=== PATIENT | female | born 1990 | race Caucasian/White ===

== ENCOUNTER → 2017-10-13 | Outpatient (CLI) | payer OTHER ==
[~2017-10-13] MED LIST: PREN-127 PO
[2017-10-13 15:15] LABS: PLATELET COUNT, AUTOMATED 237 K/uL (150-450)
== END ==
LOC: LAB 14:51
PROVIDERS: ATTEND Obstetrics & Gynecology
DX: Z34.91 Encounter for supervision of normal pregnancy, unspecified, first trimester (principal); R82.79 Other abnormal findings on microbiological examination of urine
CPT/HCPCS: 36415; 81001; 85025; 86592; 86762; 86850; 86900; 86901; 87088; 87340

== ENCOUNTER → 2018-01-22 | Outpatient (CLI) | payer OTHER ==
[~2018-01-22] MED LIST changes: +DOXY25TA19; +VITA1CAP46 PO
--- NOTE | 2018-01-22 14:04 | RADIOLOGY IMAGING REPORT ---
FACILITY: [facility] PATIENT NAME: Marleny Catalan : 1990 MR: [id number] V: [id number] EXAM DATE: ORDERING PHYSICIAN: LATIA MCMAHON TECHNOLOGIST: Location: [facility] [place] Patient: Marleny Catalan : 1990 Visit/Account:[id number] Date of Sevice: 01/22/2018 [facility] OB ANATOMICAL SURVEY HISTORY: Anatomical survey COMPARISON: None. TECHNIQUE: Transabdominal imaging was performed for assessment of the fetus and maternal pelvic s tructures. Transvaginal imaging was not performed. FINDINGS: Intrauterine gestations: One. presentation: Breech with the head towards the maternal right in the spine towards the maternal left. heart rate: 142 bpm. Amniotic fluid volume: ; HILTON 13.2 cm; MVP 3.62 cm. Placenta: Anterior. Uterus: Gravid, otherwise grossly unremarkable where visualized. Maternal adnexa/ovaries: Grossly unremarkable, ovaries not visualized. Cervix: Grossly long and closed. Gestational Parameters: BPD: 4.64 cm, 14 percentile HC: 18.74 cm, 43rd percentile AC: 15.91 cm, 44th percentile FL: 3.47 cm, 38th percentile Average ultrasound age (AUA): 20 weeks/ six days Estimated age based on LMP: 21 weeks/ zero days, 42nd percentile Estimated weight (EFW): 389 grams +/- 57 grams Anatomic Survey: Intracranial structures, 4-chamber heart, stomach, kidneys, urinary bladder, spine, 3-vessel cord and cord insertion are unremarkable. Two upper and two lower extremities visualized. IMPRESSION: Single viable fetus in breech presentation with an estimated gestational age of 20 weeks and six days by measurements. The estimated weight is 389 g HILTON measures 13.2 cm, MVP 3.62 cm Report Dictated By: Dominique Lo MD at 01/22/2018 1:53 PM Report E-Signed By: Dominique Lo MD at 01/22/2018 2:00 PM WSN:GUI
== END ==
LOC: RAD 11:01
PROVIDERS: ATTEND Obstetrics & Gynecology
DX: Z34.82 Encounter for supervision of other normal pregnancy, second trimester (principal); O32.1XX0 Maternal care for breech presentation, not applicable or unspecified; Z3A.20 20 weeks gestation of pregnancy

== ENCOUNTER → 2018-03-02 | Outpatient (CLI) | payer OTHER ==
[~2018-03-02] MED LIST changes: +DIPH0.5D12 IM; +FLU60VIA41 IM
[2018-03-02 10:26] LABS: PLATELET COUNT, AUTOMATED 241 K/uL (150-450)
== END ==
LOC: LAB 09:08
PROVIDERS: ATTEND Student in an Organized Health Care Education/Training Program
DX: Z34.92 Encounter for supervision of normal pregnancy, unspecified, second trimester (principal)
CPT/HCPCS: 36415; 82950; 85025

== ENCOUNTER → 2018-05-01 | Outpatient (CLI) | payer OTHER | LOC: LAB 10:03 | PROVIDERS: ATTEND Advanced Practice Midwife | DX: Z34.93 Encounter for supervision of normal pregnancy, unspecified, third trimester (principal) | CPT/HCPCS: 87081 ==

== ENCOUNTER 2018-05-10 15:36 | Inpatient (IN) | payer OTHER ==
[~2018-05-10] VITALS: Ht 170.2 cm; Wt 74.8 kg
[2018-05-10] MEDS ORDERED: NIFEdipine 10 MG CAP PO ONE (16:00)
[2018-05-10] MEDS: LR(*) 1000 ML BAG 1,000 ML IV SCH (16:23)
[2018-05-10] MEDS ORDERED: LABETALOL HCL 20 MG/4 ML SYR IVP ONE (16:25)
[2018-05-10] MEDS ORDERED: LABETALOL HCL 20 MG/4 ML SYR ONE (16:30)
[2018-05-10 16:33] LABS: PLATELET COUNT, AUTOMATED 192 K/uL (150-450)
[2018-05-10 16:53] VITALS: BP 167/102; Ht 170.2 cm; Wt 74.8 kg
[2018-05-10] MEDS ORDERED: DINOPROSTONE 10 MG INSERT PV ONE (16:58)
[2018-05-10] MEDS: MAGNESIUM SULF 20 GM/500 ML IV 500 ML IV SCH (17:02)
[2018-05-10] MEDS ORDERED: MAGNESIUM SUL* 4 GM/100 ML BAG 100 ML IVPB ONE (17:30)
[2018-05-10] MEDS ORDERED: LABETALOL HCL 20 MG/4 ML SYR IVP PRN (17:45)
[2018-05-10] MEDS ORDERED: CALCIUM GLUC 10% 100 MG/ML VL IVP PRN (17:45)
--- NOTE | 2018-05-10 17:51 | History & Physical ---
History of Present Illness EDC per LMP: Jun 04, 2018 Estimated Gestational Age: 36.4 Chief Complaint Elevated blood pressure History of Present Illness 27-year-old at 36w4d presented to L&D for elevated BP. She was feeling poorly this morning with some nausea and generalized epigastric pain. She then developed dizziness. She went to the [employer] station, where her friend was working. Her BPs were in the severe range there. She started having a headache around 3pm. She denies vomiting. She reports good movement. No contractions or bleeding. She has had an uncomplicated up until now. PNC by IMG. History Patient's Blood Type: O Positive Rubella Status: Immune Group B Strep Screen: Negative Obstetrical History: G1: 39wk , no anesthesia G2: SAB in 2017 G3: Current Past Medical History: PMH: Anxiety PSH: Blanding tooth Allergies: Coded Allergies: Iodine and Iodide Containing Produc (Verified Allergy, Severe, HIVES, 10/13/17) shellfish derived (Verified Allergy, Severe, HIVES, TONGUE SWELLING, DIFFI CULTY BREATHING, 10/13/17) cat dander (Verified Allergy, Intermediate, ITCHY EYES, SINUS , 10/13/17) dog dander (Verified Allergy, Intermediate, HIVES, 10/13/17) horse dander (Verified Allergy, Intermediate, SNEEZING AND WATERY EYES, 10/13/17) Uncoded Allergies: SEAFOOD (Allergy, Severe, HIVES, TONGUE SWELLING, DIFFICULTY BREATHING, 10/13/17) Social History: No T/E/D. Family History: FHx: back pain FATHER FHx: brain tumor MOTHER FHx: hypertension MOTHER Med Rec Home Meds Reported Medications Vits W-Ca,Fe,Fa(<1MG) ( VITAMINS) 1 Each Tablet, 1 EACH PO DAILY, TAB 10/13/17 Review of Systems Constitutional: No Fever Neurological: No Syncope Eyes: No Vision Change Cardiovascular: No Chest Pain, No Palpitations Respiratory: No Shortness of Breath, No Cough, No Wheezing Gastrointestinal: Nausea; No Vomiting, No Diarrhea Genitourinary: No Dysuria Musculoskeletal: No Pain Psychiatric: Anxiety; No Depression Exam General Exam Vital Signs Vital Signs Date Time Temp Pulse Resp B/P (MAP) Pulse Ox O2 Delivery O2 Flow Rate FiO2 05/10/18 16:53 97.4 57 18 167/102 (123) 99 Room Air General Apperance: Alert/Awake/No Acute Distress (Anxious) Neuro: No Gross deficits Eyes: Normal Extraocular Movement & Vison Cardiovascular: Regular Rate and Rhythm Respiratory: No Respiratory Distress, Clear to Auscultation Abdomen: Gravid - Non-Tender : Normal Musculoskeletal: No Weakness/Pain Extremities: No Cyanosis,Clubbing or Edema, Reflexes (3+ bilateral DTR of lower extremities); No Clonus Integumentary: Skin Intact without Lesions or Rash Psychological: Alert & Oriented X3, Appropriate Mood & Affect Cervical Dialation: 1 Cervical Effacement (%): 60 Cervical Consistency: Moderate Cervical Position: Posterior Station: -1 Presentation: Vertex Uterine Contractions(Q min): 10 Uterine Contraction Strength: Mild UC Resting Tone: Soft Fetus Feeling Movement?: Yes FHT Category: I Medical Decision Making Data Points Result Diagram: 05/10/18 1619 05/10/18 1600 Urine Pr:Cr = 5 Pre-Admit Course Medical Record Review: Yes VTE Prophylasis: Adult Deep Vein Thrombosis/Pulmonary: No Pharmacological Contraindicati: Pt at Low Risk for VTE Mechanical Contraindications: Pt at Low Risk for VTE Assessment and Plan Problems: (1) Severe pre-eclampsia in third trimester Assessment & Plan: 27-year-old at 36w4d presented to L&D for elevated BP. She has been found to have severe preeclampsia by blood pressure, symptoms and elevated liver enzymes. I am concerned she is developing HELLP syndrome, but at this time her platelets are still normal. Her liver enzymes are elevated. Her Pr:Cr ratio is 5. She responded well to one dose of Labetalol 20mg IV for blood pressure. She has been started on Magnesium 4gram bolus and now at 2g/hr. Betamethasone has been ordered. We had a long discussion about the indication for induction at this time. Her Amin score is unfavorable at 6. Cervadil was placed into posterior fornix. Will repeat labs in 4 hours to see if they are trending worse. Will move towards vaginal delivery unless mom or baby appear unstable. Will monitor I&O's closely. GBS negative. (2) 36 weeks gestation of LATIA MCMAHON MD May 10, 2018 17:36
[2018-05-10] MEDS ORDERED: BETAMETHASONE/ACETATE 6 MG/1ML IM ONLY SCH (18:00)
[2018-05-10 20:12] LABS: PLATELET COUNT, AUTOMATED 201 K/uL (150-450)
[2018-05-10] MEDS ORDERED: ONDANSETRON 4 MG/2 ML VIAL ONE (21:00)
[2018-05-10] MEDS ORDERED: BUPIVACAINE 0.5% INJ 30ML VIAL EPI PRN (21:05)
[2018-05-10] MEDS ORDERED: ONDANSETRON 4 MG/2 ML VIAL IVP PRN (21:05)
[2018-05-10] MEDS ORDERED: fentaNYL CITR 100 MCG/2 ML AMP IT PRN (21:05)
[2018-05-10] MEDS ORDERED: LIDO/EPI 2% MPF 1:200,000 20ML EPI PRN (21:05)
[2018-05-10] MEDS ORDERED: LIDOCAINE/PF 2% 200MG/10ML AMP 200 MG/10 ML AMPUL EPI PRN (21:05)
[2018-05-10] MEDS ORDERED: BUPIVACAINE 0.25% MPF INJ EPI PRN (21:05)
[2018-05-10] MEDS ORDERED: EPIDURAL KEYS XX PRN (21:05)
[2018-05-10] MEDS ORDERED: FENTANYL/ROPIVACAINE 100 ML BAG EPI PRN (21:05)
[2018-05-10] MEDS ORDERED: ACETAMINOPHEN 325 MG TAB PO PRN (21:15)
[2018-05-10] MEDS ORDERED: fentaNYL CITR 100 MCG/2 ML AMP IVP PRN (21:15)
[2018-05-10] MEDS ORDERED: DEXAMETHASONE SOD 4 MG/ML VIAL IVP SCH (21:25)
--- NOTE | 2018-05-10 21:33 | Labor Progress Note ---
Labor Subjective Progress Notes Subjective Pt still has a headache in the back of her head, but it is not worse. In fact, it nearly resolved for a short time. She is feeling nauseated and has had 2 episodes of emesis. She denies blurry vision. She has a sensation of pressure in the epigastric region but not pain in the RUQ. She reports movement. She feels anxious. She is feeling some cramping. Labor Objective Vital Signs Vital Signs Date Time Temp Pulse Resp B/P (MAP) Pulse Ox O2 Delivery O2 Flow Rate FiO2 05/10/18 16:53 97.4 57 18 167/102 (123) 99 Room Air Fetus Heart Tones: 150 Heart Tone Variabilty: Moderate FHT Decelerations: None FHT Category: I General Exam General Appearance: Alert/Awake/No Acute Distress Respiratory: No Respiratory Distress, Clear to Auscultation Abdomen: Gravid - Non-Tender Musculoskeletal: No Weakness/Pain Extremities: No Cyanosis,Clubbing or Edema, Reflexes (3+ bilateral DTR); No Clonus Integumentary: Skin Intact without Lesions or Rash Psychological: Alert & Oriented X3, Appropriate Mood & Affect Other Result Diagram: 05/10/18200605/10/182006 Assessment and Plan Problems: (1) Severe pre-eclampsia in third trimester Assessment & Plan: Repeat labs at 4 hours show stable platelets and creatinine. However, her AST/ALT have increased. She is having an increase in nausea but otherwise feels the same as admission. Her BP are now stable without additional antihypertensives. She continues on magnesium drip. I spoke with Dr. Bailon of [facility]. He recommends starting dexamethasone to see if we can get more time to work towards a vaginal delivery. However, if repeat labs show worsening PLT or she develops worsening symptoms or urine output drops, he recommends for expedited delivery. Will start with dexamethasone 4mg IV, then 2mg IV Q4hrs. In the meantime, she will get epidural prior to attempt at hilliard bulb placement to assist with ripening. Dr. Bailon recommends the following taper : Dexamethasone 2mg Q4hr until LFTs improve; then oral 2mg Q6H x 2 days, 2mg Q8H x 2 days, 2mg Q12H x 2 days, then 2mg Q24H x 2 days (2) 36 weeks gestation of LATIA MCMAHON MD May 10, 2018 21:33
[2018-05-10] MEDS ORDERED: DEXAMETHASONE SOD 4 MG/ML VIAL IVP ONE (21:40)
[2018-05-10] MEDS ORDERED: ACETAMINOPHEN(*)1000 MG/100 ML 100 ML IVPB PRN (21:50)
--- NOTE | 2018-05-10 23:18 | Labor Progress Note ---
Labor Subjective Progress Notes Subjective Pt is feeling much better with epidural. She denies current headache. Her nausea is slightly improved now. Labor Objective Vital Signs Vital Signs Date Time Temp Pulse Resp B/P (MAP) Pulse Ox O2 Delivery O2 Flow Rate FiO2 05/10/18 16:53 97.4 57 18 167/102 (123) 99 Room Air Vaginal Discharge/Fluid?: Clear Fluid Cervical Dialation: 4 Cervical Effacement (%): 80 Cervical Consistency: Soft Cervical Position: Mid Station: 0 Presentation: Vertex Uterine Contractions(Q min): 4 Uterine Contraction Strength: Moderate UC Resting Tone: Soft Fetus Heart Tones: 133 Heart Tone Variabilty: Minimal (Due to magnesium), Moderate FHT Decelerations: None FHT Category: II General Exam General Appearance: Alert/Awake/No Acute Distress Cardiovascular: Normal Rhythm & Peripheral Pulses Respiratory: No Respiratory Distress Musculoskeletal: No Weakness/Pain Extremities: No Cyanosis,Clubbing or Edema Integumentary: Skin Intact without Lesions or Rash Psychological: Alert & Oriented X3, Appropriate Mood & Affect Other Result Diagram: 05/10/18200605/10/182006 Assessment and Plan Problems: (1) Severe pre-eclampsia in third trimester Assessment & Plan: Pt is now comfortable with epidural. She has now progressed to 4/80. AROM with clear fluid. Will start pitocin at midnight. Hoping for . Will continue magnesium and dexamethasone. Her BP is going up slightly since epidural. Will treat as needed. (2) 36 weeks gestation of LATIA MCMAHON MD May 10, 2018 23:18
--- NOTE | 2018-05-10 23:45 | Anesthesia OB Pre-Anes Eval ---
History of Present Illness Anesthesia Start Date: May 10, 2018 Anesthesia Start Time: 22:00 Current Complication: other (PIH) Complications: 36 weeks EDC: Jun 04, 2018 : 3 Para: 1 Vital Signs: Vital Signs Date Time Temp Pulse Resp B/P (MAP) Pulse Ox O2 Delivery O2 Flow Rate FiO2 05/10/18 16:53 97.4 57 18 167/102 (123) 99 Room Air Pain Ratin Heart Tones: WNL Result Diagram: 05/10/18200605/10/182006 Height (Inches): 67.00 Weight (Pounds): 165 Past Medical History Medical History: no pertinent history Surgical History: no surgical history, other ("only wisdom teeth") Attended Childbirth Classes?: No Hx Anesthesia Reactions: No Hx Family Anesthesia Reaction: No Current Medications: magnesium sulfate Home Meds Reported Medications Vits W-Ca,Fe,Fa(<1MG) ( VITAMINS) 1 Each Tablet, 1 EACH PO DAILY, TAB 10/13/17 Allergies: Coded Allergies: Iodine and Iodide Containing Produc (Verified Allergy, Severe, HIVES, 10/13/17) shellfish derived (Verified Allergy, Severe, HIVES, TONGUE SWELLING, DIFFICULTY BREATHING, 10/13/17) cat dander (Verified Allergy, Intermediate, ITCHY EYES, SINUS , 10/13/17) dog dander (Verified Allergy, Intermediate, HIVES, 10/13/17) horse dander (Verified Allergy, Intermediate, SNEEZING AND WATERY EYES, 10/13/17) Uncoded Allergies: SEAFOOD (Allergy, Severe, HIVES, TONGUE SWELLING, DIFFICULTY BREATHING, 10/13/17) Anesthesia OB ROS Neurological: No migraines/headaches, No seizures, No neuropathy ENT: Denies Tooth caps, Denies Loose teeth, Denies Chipped teeth, Denies Dentures, Denies Bridges, Denies Retainers, Denies Veneers, Denies Implants, Denies Tongue ring Pulmonary: No asthma, No smoker (pks/day/yrs) Airway Class: lll GI ROS: clear liquids Last Solids Date: May 10, 2018 Last Solids Time: 15:00 ROS: No Herpes, No STD(s), No Liver Disease, No Renal Disease Endocrine ROS: No diabetes, No gestational diabetes, No thyroid disorder Musculoskeletal ROS: No low back pain, No low back injury, No scoliosis ASA Classification: 3, E Assessment and Plan Anesthesia Plan: LEB Assessment Pt. present with PIH, needing to be induced for delivery bruce. Pt. is agreeable to have epidural placed before Dr. Kraft places a hilliard catheter for induction. Past Medical, Surgical, Family and Obstetric Histories reviewed. Please see ACOG chart. Epidural anesthesia risks, complications and benefits explained to patient's satisfaction for labor and vaginal delivery and/or section. General anesthesia risks and benefits explained to patient's satisfaction. Questions invited, and answered. GISELA DRAKE CRNA May 10, 2018 23:45
--- NOTE | 2018-05-10 23:51 | Procedure Note ---
Anesthetic Placement Note Anesthesia Plan: CSE Permit for Anesthesia Signed: Yes Anesthesia Technique: Patient Sitting Anesthesia Prep: Chlorhexidine Interspace: L 3-4 Local Anesthetic: 1% Lidocaine, 25 Gauge Needle Amount Local - cc's: 2 Anesthesia Needle: 17g Touhy/Schliff Anesthesia Attempts: 1 Loss of Resistance: Air Depth of ES (cm): 3 Epidural Needle Placement: No CSF, No Blood, No Parasthesia Cerebral Spinal Fluid: No Catheter Insertion (cm): 5 Catheter Type: Cordero - Spring Wound Epidural Dressing: Tegaderm, Tape, Adhesive [place] Anesthesia Tray: Lot Number ([id number]), Expiration Date (2019-03-27), Reference Number ([id number]) Anesthesia Medications: Intrathecal Dose: Other (None) Epidural Test Dose: 1.5 Lido/Epi (1:200,000), Dose - mL (2), Time (6), Negative Epidural Loading Dose: 0.2% Ropivicaine, With Fentanyl 2mcg/ml, Dose - ml (10), Time (2230) Epidural Infusion: 0.2% Ropivicaine, With Fentanyl 2mcg/ml, Start Time: (2250) Epidural Pump Setting: Bolus Dose - mL (5), Lockout - Minutes (20), Maintenance Rate - mL/hr (6), Maximum per Hour - mL (21) Complications: None Comment: Pt. became nauseated and "light headed" while sitting up for epidural placement. Assisted to lay on her side til symptoms passed. BP was very stable. After repositioning she was able to sit for smooth placement of epidural. No problems encounter with placement. GISELA DRAKE CRNA May 10, 2018 23:51
--- NOTE | 2018-05-10 23:59 | Anesthesia Progress Note ---
Progress/Maintenance Anesthesia Note Date: May 10, 2018 Pain Intensity: 0 Pump: On Pump Rate (ML/HR): 6 Sensory Level: T-12 Motor Level: Bending Knees-Bilateral, Other (left leg heavier) Dilatation: 4 Position: Right, Tilt Assessment and Plan Assessment Exam by Dr. Kraft. Pt. found to be 4-5 cms, not needing a hilliard bulb for dilation. Pt. had excellent tolerance of exam and AROM. GISELA DRAKE CRNA May 10, 2018 23:59
[2018-05-11] VITALS (18 sets, daily range): BP systolic 118–173; BP diastolic 68–102
[2018-05-11] MEDS: MAGNESIUM SULF 20 GM/500 ML IV 500 ML IV SCH (00:52)
[2018-05-11] MEDS: LR(*) 1000 ML BAG 1,000 ML IV SCH (00:53)
--- NOTE | 2018-05-11 00:56 | Anesthesia Progress Note ---
Progress/Maintenance Anesthesia Note Date: May 11, 2018 Anesthesia Note Time: 00:50 Pain Intensity: 6 Pump: On Pump Rate (ML/HR): 6 Sensory Level: T-12 Motor Level: Bending Knees-Bilateral Dilatation: 4 Position: Right, Tilt Drug Bolus: Other (Fentenyl 50 mcgs) Assessment and Plan Assessment Pt. states she is feeling stronger contractions and requests more epidural medication. Bolus with Fentenyl and per pump. GISELA DRAKE CRNA May 11, 2018 00:56
[2018-05-11] MEDS ORDERED: DEXAMETHASONE SOD 4 MG/ML VIAL IVP SCH ×2 (01:00→05:00)
[2018-05-11] MEDS ORDERED: OXYTOCIN 30 UNIT/D5LR 500 ML 500 ML IV PRN ×2 (01:02)
--- NOTE | 2018-05-11 01:06 | Labor Progress Note ---
Labor Subjective Progress Notes Subjective Pt is feeling pain with contractions. She is breathing through with her mother at her bedside. No specific preeclampsia symptoms at this time. Labor Objective Vital Signs Vital Signs Date Time Temp Pulse Resp B/P (MAP) Pulse Ox O2 Delivery O2 Flow Rate FiO2 05/10/18 16:53 97.4 57 18 167/102 (123) 99 Room Air Vaginal Discharge/Fluid?: Green Tinged Fluid Cervical Dialation: 5 Cervical Effacement (%): 80 Cervical Consistency: Soft Cervical Position: Mid Station: 0 Presentation: Vertex Uterine Contractions(Q min): 3 Uterine Contraction Strength: Moderate UC Resting Tone: Soft Fetus Heart Tones: 130 Heart Tone Variabilty: Minimal, Moderate FHT Accelerations: Absent FHT Decelerations: None FHT Category: II General Exam General Appearance: Alert/Awake/No Acute Distress Respiratory: No Respiratory Distress Extremities: No Cyanosis,Clubbing or Edema; No Clonus Integumentary: Skin Intact without Lesions or Rash Psychological: Alert & Oriented X3, Appropriate Mood & Affect Other Result Diagram: 05/11/18 0016 05/11/18 0016 Assessment and Plan Problems: (1) Severe pre-eclampsia in third trimester Assessment & Plan: Pt is 5cm and 80% effaced. Pitocin was just started one hour ago. Will initiate a high dose protocol to try to expedite delivery. Recently fluid has a appeared lightly meconium stained. Her BP is stable. Continue Magnesium drip. Her labs have returned and are certainly worsening with regards to PLT and LFT. Creatinine is stable at 0.7. We discussed if she does not have significant cervical change in the next couple of hours, we will need to proceed with primary CD. Although FHT are category II, I suspect this is mainly due to magnesium. There are no decelerations to indicate distress at this time. Will monitor closely. (2) 36 weeks gestation of LATIA MCMAHON MD May 11, 2018 01:06
--- NOTE | 2018-05-11 01:30 | Anesthesia Progress Note ---
Progress/Maintenance Anesthesia Note Date: May 11, 2018 Anesthesia Note Time: 01:25 Pain Intensity: 7 Pump: On Pump Rate (ML/HR): 10 Dilatation: 4 Position: Left, Tilt Drug Bolus: 0.5% Marcaine (5 ml), Other (Fentenyl 50 mcgs) Assessment and Plan Assessment Pt. continues to feel strong contractions. Bolus of 0.5% Marcaine plain and Fentenyl 50 mcgs repeated. GISELA DRAKE CRNA May 11, 2018 01:30
--- NOTE | 2018-05-11 02:37 | OB Delivery Note ---
Delivery Note Vaginal Delivery Type: Spont. Vaginal Delivery Delivery Date: May 11, 2018 Delivery Time: 02:23 Estimated Gestational Age(wks): 36.4 Length of Labor Stage II (hrs): 0.3 Labor Stage III (minutes): 3 Delivery Anesthesia: Epidural Sex: Female [place] Apgars: 1 Minute (8), 5 Minute (9) Estimated Blood Loss: 200 Personalized Living Assistant in Attendence: Yes (Dr. Baca) LATIA MCMAHON MD May 11, 2018 02:37
[2018-05-11] MEDS ORDERED: MAGNESIUM HYDROXIDE* 30ML UDCP PO PRN (02:45)
[2018-05-11] MEDS ORDERED: BENZOCAINE 20% 60 ML BTL TP PRN (02:45)
[2018-05-11] MEDS ORDERED: INFLUENZA VIRUS VAC 0.5ML SYR IM ONLY ONE (02:45)
[2018-05-11] MEDS ORDERED: ACETAMINOPHEN 325 MG TAB PO PRN (02:45)
[2018-05-11] MEDS ORDERED: GLYCERIN/WITCH HAZEL LEAF 1 PK TOP PRN (02:45)
[2018-05-11] MEDS ORDERED: IBUPROFEN 800 MG TAB PO SCH (02:45)
[2018-05-11] MEDS ORDERED: DIPHTH/TETANUS/ACEL. PERTUSSIS IM ONE (02:45)
[2018-05-11] MEDS ORDERED: LANOLIN OINT 7 GM TUBE TP PRN (02:45)
[2018-05-11] MEDS ORDERED: MEASLES,MUMP,RUBELLA VAC 0.5ML SC ONE (02:45)
[2018-05-11] MEDS ORDERED: HYDROCORTISONE 2.5% CR 30GM TB PR PRN (02:45)
--- NOTE | 2018-05-11 02:48 | Anesthesia Progress Note ---
Progress/Maintenance Anesthesia Note Date: May 11, 2018 Anesthesia Note Time: 02:40 Pain Intensity: 0 Pump: Off Sensory Level: T-12 Motor Level: Other (Both legs very heavy) Dilatation: 10 Position: Semi-Fowlers Assessment and Plan Assessment Pt. found to be complete and no further medication was given. Her legs were very heavy. Assisted with holding legs. Pt. was able to push well. Excellent tolerance of delivery. Epidural catheter removed entact. Anesthesia Stop Day: May 11, 2018 Anesthesia Stop Time: 02:40 Epidural Catheter Removal: Removed Catheter Intact, Yes, Removed by: (Starr Zepeda CRNA) Removal Date: May 11, 2018 Removal Time: 02:40 GISELA ZEPEDA CRNA May 11, 2018 02:48
--- NOTE | 2018-05-11 04:31 | DELIVERY NOTE ---
EVENT DATE: May 11, 2018 SURGEON: Abril Kraft MD ANESTHESIA: Epidural by Radha Zepeda CRNA. PREOPERATIVE DIAGNOSIS Intrauterine at 36 weeks and 4 days, presenting with severe preeclampsia and developing HELLP syndrome. POSTOPERATIVE DIAGNOSIS 1. Intrauterine at 36 weeks and 4 days, presenting with severe preeclampsia and developing HELLP syndrome. 2. Delivery of a viable female infant at 0223 hours weighing 5# 8oz with Apgars of 8 at one minute and 9 at five minutes. PROCEDURE PERFORMED Spontaneous vaginal delivery. ESTIMATED BLOOD LOSS 200 mL. INDICATIONS FOR PROCEDURE This patient is a 27-year-old 3, para 1-0-1-1, who presents at 36 weeks and 3 days with complaints of headache and generally not feeling well. She is found to have severe preeclampsia by severe blood pressures. She was started on magnesium and administered one dose of labetalol to normalize her pressures. She therefore was also given betamethasone for lung maturity. Cervidil was administered at 1708 hours on May 10, 2018. An 2255 hours, an amniotomy was performed, as the patient was 4, 80, and 0 station. The Cervidil was removed. She was subsequently started on Pitocin high-dose protocol. During this time, her laboratory values were monitored and her liver enzymes continued to elevate gradually, and her platelets were dropping. She, fortunately, progressed rapidly to complete at 0159 hours and was prepared for pushing. DESCRIPTION OF PROCEDURE The patient was properly identified and placed in the dorsal lithotomy position. She was noted to be complete and +2 station. She was asked to push, and over a 24-minute period was able to bring the 's vertex to the perineum. She then delivered the in the LUZ position over an intact perineum. A nuchal cord was checked but not noted. The anterior shoulder delivered easily, followed by the posterior shoulder. The remainder of the was easily delivered. The infant had spontaneous cry and spontaneous movement of all four extremities. The oropharynx and nasopharynx were bulb-suctioned, and the was passed to the mother's abdomen, where nursing personnel was in attendance. Dr. Baca was also present for the delivery. After one minute, the cord was clamped x2 and cut by the father of the baby. Cord blood was then obtained and passed off the table. The placenta subsequently delivered spontaneously intact at 0226 hours and was passed off the table. Examination of the cervix, vaginal vault, and perineum revealed no lacerations except a slight abrasion on the left periurethral area. This did not require suturing. The patient tolerated this procedure well and recovered in Labor and Delivery with her . All sponge and needle counts were correct at the end of the procedure. JADEN
[2018-05-11] MEDS ORDERED: MAGNESIUM SULF 20 GM/500 ML IV 500 ML IV SCH ×3 (08:00→22:00)
[2018-05-11] MEDS: DOCUSATE CALCIUM 240 MG CAP PO SCH ×2 (09:57→21:12)
[2018-05-11] MEDS ORDERED: MISOPROSTOL 200 MCG TAB PO ONE (10:55)
[2018-05-11] MEDS ORDERED: MISOPROSTOL 200 MCG TAB ONE (10:58)
--- NOTE | 2018-05-11 11:18 | OB/GYN Progress Note ---
OB Subjective Progress Notes Subjective Doing good this morning. Tolerating PO intake. No longer having headaches. Some RUQ pain. Still having visual changes. Bleeding appropriate. Still has hilliard catheter. No ambulation (SCD's on LE) GI: NEG Nausea, NEG Vomiting, NEG Flatus, NEG Bowel Movement : Vaginal Bleeding, Moderate Pain: Mild Neurological: No Headache, No Other OB Objective Physical Exam Vital Signs Date Time Temp Pulse Resp B/P (MAP) Pulse Ox O2 Delivery O2 Flow Rate FiO2 05/11/18 07:00 98 Room Air 05/11/18 06:21 76 18 118/68 (85) 05/11/18 03:38 98.3 Intake and Output 05/11/18 07:00 Intake Total 240 ml Output Total 1825 ml Balance -1585 ml Intake Oral 240 ml Output Urine Total 1825 ml # Voids 6 General Appearance: Alert/Awake/No Acute Distress Neurological: No Gross deficits Eyes: Normal Extraocular Movement & Vison, PERRLA Cardiovascular: Normal Rhythm & Peripheral Pulses Respiratory: No Respiratory Distress Abdomen: Soft, Non-Tender, Non-Distended, Fundus Firm Musculoskeletal: No Weakness/Pain, Other (DTR 2/4) Extremities: No Cyanosis,Clubbing or Edema; No Clonus Integumentary: Skin Intact without Lesions or Rash Psychological: Alert & Oriented X3, Appropriate Mood & Affect Result Diagram: 05/11/18 1009 05/11/18 1009 Assessment and Plan FINANCE EFFECTIVENESS MANAGER Plan: Routine Post- Care Problems: (1) Severe pre-eclampsia in third trimester Assessment & Plan: Continue 24 hour magnesium recovery until 230 am 05/12/18. No need for antihypertensive at this time. Increase to regular diet. Monitor blood work q 6 hours. (2) 36 weeks gestation of TJ STOKES DO May 11, 2018 11:18
[2018-05-11] MEDS: APAP/HYDROCODONE 325/5 TAB PO PRN ×2 (11:42→23:13)
[2018-05-11] MEDS: IBUPROFEN 800 MG TAB PO SCH ×2 (12:35→21:12)
--- NOTE | 2018-05-11 13:01 | Anesthesia Post Eval Note ---
Anesthesia Post Eval Note Vital Signs Date Time Temp Pulse Resp B/P (MAP) Pulse Ox O2 Delivery O2 Flow Rate FiO2 05/11/18 10:04 74 16 156/97 (116) 99 05/11/18 09:00 97.2 Room Air Pt able to participate in Eval: Yes Cardiovascular Status: Satisfactory Respiratory Status: Satisfactory Pain Managment: Satisfactory PO Nausea/Vomiting: Satisfactory Temperature Management: Satisfactory Mental Status: Satisfactory, Alert, Oriented X3 Post-Op Hydration Status: Satisfactory, Tolerating PO Well, Voiding w/o Difficulty Anesthesia Type: LEB Anesthesia Tolerance: Pt. remains on IV Magnesium for PIH. She is able to move her legs in bed. Headache is considered from her PIH, rather than PDPHA. Tolerated procedure well without apparent anesthetic complications. LP site clear, no redness or edema. Patient comfortable. GISELA DRAKE CRNA May 11, 2018 13:00
[2018-05-11] MEDS ORDERED: MAGNESIUM SULF 20 GM/500 ML IV 500 ML ONE (13:11)
--- NOTE | 2018-05-11 16:44 | OB/GYN Progress Note ---
OB Subjective Progress Notes Subjective Doing better than this morning. Reports no longer having eye problems. bleeding improved. No headache or visual changes. GI: NEG Nausea, NEG Vomiting, NEG Flatus, NEG Bowel Movement : Vaginal Bleeding, Moderate Pain: Mild, Comfortable, Tolerating PO Pain Meds Neurological: No Headache, No Other Eyes: No Visual Disturbances OB Objective Physical Exam Vital Signs Date Time Temp Pulse Resp B/P (MAP) Pulse Ox O2 Delivery O2 Flow Rate FiO2 05/11/18 16:00 99.3 67 14 154/101 (118) 98 Room Air Intake and Output 05/11/18 07:00 Intake Total 240 ml Output Total 1825 ml Balance -1585 ml Intake Oral 240 ml Output Urine Total 1825 ml # Voids 6 General Appearance: Alert/Awake/No Acute Distress Neurological: No Gross deficits Eyes: Normal Extraocular Movement & Vison, PERRLA Cardiovascular: Normal Rhythm & Peripheral Pulses Respiratory: No Respiratory Distress Abdomen: Soft, Non-Tender, Non-Distended, Fundus Firm Musculoskeletal: No Weakness/Pain, Other (DTR 2/4) Extremities: No Cyanosis,Clubbing or Edema; No Clonus Integumentary: Skin Intact without Lesions or Rash Psychological: Alert & Oriented X3, Appropriate Mood & Affect Result Diagram: 05/11/18 1009 05/11/18 1009 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 Off at 0230. Plan to start Nifedipine XL as the last 6 hours BP have been greater then 14o systolic. (2) 36 weeks gestation of TJ STOKES DO May 11, 2018 16:44
[2018-05-11] MEDS ORDERED: NIFEdipine XL 30 MG TABCR PO SCH (18:00)
[2018-05-11] MEDS ORDERED: CALCIUM GLUC 10% 100 MG/ML VL IVP PRN ×2 (19:45→20:15)
[2018-05-11] MEDS ORDERED: LR(*) 1000 ML BAG 1,000 ML IV PRN (20:20)
[2018-05-11] MEDS ORDERED: LABETALOL HCL 20 MG/4 ML SYR IVP PRN ×2 (20:25→23:55)
[2018-05-11] MEDS ORDERED: LR(*) 1000 ML BAG 1,000 ML ONE (21:09)
[2018-05-12] VITALS (12 sets, daily range): BP systolic 103–139; BP diastolic 63–92
--- NOTE | 2018-05-12 04:56 | OB/GYN Progress Note ---
OB Subjective Progress Notes Subjective Pt is doing well. She had some blurry vision yesterday but that is completely resolved. No further headache or abdominal pain. No nausea. She reports feeling much better. Her pain is controlled - primarily only has cramping with breast feeding. She slept some last night. Breast feeding is going well. Norm al lochia. No CP/SOB/dizziness. OB Objective Physical Exam Vital Signs Date Time Temp Pulse Resp B/P (MAP) Pulse Ox O2 Delivery O2 Flow Rate FiO2 05/12/18 04:04 97.3 61 16 103/67 (79) 94 Room Air Intake and Output 05/12/18 06:59 Intake Total 8298 ml Output Total 7920 ml Balance 378 ml Intake Oral 4450 ml IV Total 3848 ml Output Urine Total 7920 ml # Voids 10 General Appearance: Alert/Awake/No Acute Distress Neurological: No Gross deficits Eyes: Normal Extraocular Movement & Vison, PERRLA Cardiovascular: Normal Rhythm & Peripheral Pulses Respiratory: No Respiratory Distress Abdomen: Soft, Non-Tender, Non-Distended, Fundus Firm Musculoskeletal: No Weakness/Pain, Other (DTR 2/4) Extremities: Edema (2+ bilateral LE); No Clonus Integumentary: Skin Intact without Lesions or Rash Psychological: Alert & Oriented X3, Appropriate Mood & Affect Result Diagram: 05/12/18 0350 05/12/18 0350 Assessment and Plan Problems: (1) Severe pre-eclampsia in third trimester Assessment & Plan: PPD#1 s/p . Magnesium is off. Haynes is going to be removed now. Will d/c one IV. Labs improving significantly. BP is improved with Procardia 30XL, although she did also need one dose of IV labetalol for BP >160 systolic last night while having cramping with breast feeding. Will monitor BP today and repeat labs tomorrow morning. I suspect she will be ready for discharge tomorrow. (2) 36 weeks gestation of LATIA MCMAHON MD May 12, 2018 04:56
[2018-05-12] MEDS: IBUPROFEN 800 MG TAB PO SCH ×3 (05:01→20:47)
[2018-05-12] MEDS: DOCUSATE CALCIUM 240 MG CAP PO SCH ×2 (10:05→20:47)
[2018-05-12] MEDS ORDERED: NIFEdipine XL 30 MG TABCR PO SCH (18:00)
[2018-05-13 01:02] VITALS: BP 129/75
[2018-05-13] MEDS ORDERED: EPIDURAL KEYS XX PRN (02:00)
[2018-05-13] MEDS ORDERED: FENTANYL/ROPIVACAINE 100 ML BAG EPI PRN (02:00)
[2018-05-13] MEDS ORDERED: LIDOCAINE/PF 2% 200MG/10ML AMP 200 MG/10 ML AMPUL EPI PRN (02:00)
[2018-05-13] MEDS ORDERED: fentaNYL CITR 100 MCG/2 ML AMP IT PRN (02:00)
[2018-05-13] MEDS ORDERED: BUPIVACAINE 0.25% MPF INJ EPI PRN (02:00)
[2018-05-13] MEDS ORDERED: BUPIVACAINE 0.5% INJ 30ML VIAL EPI PRN (02:00)
[2018-05-13] MEDS ORDERED: ONDANSETRON 4 MG/2 ML VIAL IVP PRN (02:00)
[2018-05-13] MEDS ORDERED: PENICILLIN G 5 MILLUN/100 ML 100 ML IVPB ONE (02:00)
[2018-05-13] MEDS ORDERED: LIDO/EPI 2% MPF 1:200,000 20ML EPI PRN (02:00)
[2018-05-13 04:20] VITALS: BP 133/80
[2018-05-13] MEDS: IBUPROFEN 800 MG TAB PO SCH ×2 (05:15→13:49)
[2018-05-13] MEDS ORDERED: PENICILLIN G 2.5 MILLUN/100 ML 100 ML IVPB SCH (06:00)
--- NOTE | 2018-05-13 08:03 | OB/GYN Progress Note ---
OB Subjective Progress Notes Subjective Doing well. Pain controlled with oral medications. Tolerating regular diet. Ambulating. Voiding. Normal lochia. No preeclampsia symptoms. OB Objective Physical Exam Vital Signs Date Time Temp Pulse Resp B/P (MAP) Pulse Ox O2 Delivery O2 Flow Rate FiO2 05/13/18 04:20 97.8 18 133/80 (97) 05/13/18 01:02 55 94 05/12/18 22:52 Room Air Intake and Output 05/13/18 07:00 Intake Total 600 ml Output Total 1000 ml Balance -400 ml Intake Oral 600 ml Output Urine Total 1000 ml # Voids 2 General Appearance: Alert/Awake/No Acute Distress Neurological: No Gross deficits Eyes: Normal Extraocular Movement & Vison, PERRLA Cardiovascular: Normal Rhythm & Peripheral Pulses Respiratory: No Respiratory Distress Abdomen: Soft, Non-Tender, Non-Distended, Fundus Firm Musculoskeletal: No Weakness/Pain Extremities: Edema (1+ bilateral LE); No Clonus Integumentary: Skin Intact without Lesions or Rash Psychological: Alert & Oriented X3, Appropriate Mood & Affect Result Diagram: 05/13/18 0551 05/13/18 0551 Assessment and Plan Problems: (1) Severe pre-eclampsia in third trimester Assessment & Plan: PPD#2 s/p . Magnesium is off. Meeting milestones today. Labs improving significantly. BP is stable with Procardia 30XL. Desires discharge to home today. Discussed routine expectations. Questions answered. Follow up in clinic in 5 days for BP check and 2 weeks for follow up with me. (2) examination following vaginal delivery LATIA MCMAHON MD May 13, 2018 08:03
[2018-05-13] MEDS ORDERED: IBUP800T37 PO (08:04)
--- NOTE | 2018-05-13 08:05 | OB/GYN Discharge Summary ---
Discharge Summary Reason for Hosp/Final Diag: (1) Severe pre-eclampsia in third trimester Hospital Course & Plan: PPD#2 s/p . Magnesium is off. Meeting milestones today. Labs improving significantly. BP is stable with Procardia 30XL. Desires discharge to home today. Discussed routine expectations. Questions answered. Follow up in clinic in 5 days for BP check and 2 weeks for follow up with me. (2) examination following vaginal delivery Lates Vital Signs Vital Signs Date Time Temp Pulse Resp B/P (MAP) Pulse Ox O2 Delivery O2 Flow Rate FiO2 05/13/18 04:20 97.8 18 133/80 (97) 05/13/18 01:02 55 94 05/12/18 22:52 Room Air Weight (Pounds): 165 Result Diagram: 05/13/18 0551 05/13/18 0551 Condition: Improved Discharge: Home, Self Jail Meds Reported Medications Vits W-Ca,Fe,Fa(<1MG) ( VITAMINS) 1 Each Tablet, 1 EACH PO DAILY, TAB 10/13/17 Follow up Referrals: MANAGER TECHNICAL - In One Week @ [facility] with LATIA MCMAHON MD Special Instructions: Follow up on Thursday 05/18 for BP check with RN only Follow up the following week with LATIA Neely MD May 13, 2018 08:04
[2018-05-13 08:15] VITALS: BP 125/77
[2018-05-13] MEDS ORDERED: NIFE30TA92 PO (08:36)
[2018-05-13] MEDS: DOCUSATE CALCIUM 240 MG CAP PO SCH (09:15)
[2018-05-13 11:30] VITALS: BP 139/86
== END 2018-05-13 16:50 | disposition home or self-care (01) | DRG 807 ==
LOC: OB 15:36
PROVIDERS: ADMIT Obstetrics & Gynecology; ATTEND Obstetrics & Gynecology
PROC: 10E0XZZ Delivery of Products of Conception, External Approach (ICD-10-PCS; principal; 2018-05-10)
PROC: 10907ZC Drainage of Amniotic Fluid, Therapeutic from Products of Conception, Via Natural or Artificial Opening (ICD-10-PCS; 2018-05-10)
PROC: 3E0P7VZ Introduction of Hormone into Female Reproductive, Via Natural or Artificial Opening (ICD-10-PCS; 2018-05-10)
DX: O14.14 Severe pre-eclampsia complicating childbirth (principal); Z37.0 Single live birth; Z3A.36 36 weeks gestation of pregnancy
CPT/HCPCS: 36415; 82040; 82247; 82310; 82374; 82435; 82565; 82570; 82947; 83735; 84075; 84132; 84155; 84156; 84295; 84450; 84460; 84520; 85025; 85027; 86703; 86850; 86900; 86901; 88307; A4344; J0702; J1100; J2405; J2590; J3010; J3475; J3490; J7120; S0020

== ENCOUNTER → 2018-06-23 | Outpatient (CLI) | payer OTHER ==
[2018-05-10 16:53] VITALS: BMI 25.8
[~2018-06-23] MED LIST changes: +DICL500C66 PO; +DOCO100C2 PO; +IBUP800T37 PO; +NIFE30TA92 PO
== END ==
LOC: LAB 11:15
PROVIDERS: ATTEND Obstetrics & Gynecology
DX: O14.25 HELLP syndrome, complicating the puerperium (principal)
CPT/HCPCS: 36415; 82040; 82247; 82310; 82374; 82435; 82565; 82947; 84075; 84132; 84155; 84295; 84450; 84460; 84520; 85027